=== PATIENT | male | born 1970 | race Hispanic/Latino ===

== ENCOUNTER 2020-08-01 22:22 | Emergency (ER) | payer SELFPAY ==
[~2020-08-01] VITALS: Ht 167.6 cm; Wt 79.5 kg
[~2020-08-01 22:22] MED LIST: CARAFATE1 GM PO; FAMOTIDINE20 M1 PO; METFORMIN500 MG PO; NO HOME MEDS
[2020-08-02 00:30] VITALS: BP 105/69
--- NOTE | 2020-08-02 08:52 | NUR ---
Review of Covid-19 monoclonal antibody eligibility. Pt is 50 yo, no PMH, BMI <35, and not taking any medications. Patient does not meet criteria for administration of Covid-19 antibody.
== END 2020-08-02 00:30 | disposition home or self-care (01) | DRG 179 ==
LOC: ED 22:22
DX: U07.1 COVID-19 (principal); R43.9 Unspecified disturbances of smell and taste; R52 Pain, unspecified; R50.9 Fever, unspecified